=== PATIENT | male | born 1995 | race Caucasian/White ===

== ENCOUNTER 2017-03-01 01:12 | Emergency (ER) | payer SELFPAY ==
[~2017-03-01] VITALS: Ht 175.3 cm; Wt 93.2 kg
[2017-03-01 01:16] VITALS: BP 167/90
[2017-03-01 02:20] VITALS: PULSE 80; TEMP 99.5
== END 2017-03-01 02:20 | disposition home or self-care (01) ==
LOC: COL.ER 01:12
DX: S60.031A Contusion of right middle finger without damage to nail, initial encounter (principal); S60.041A Contusion of right ring finger without damage to nail, initial encounter; W23.0XXA Caught, crushed, jammed, or pinched between moving objects, initial encounter; Y92.89 Other specified places as the place of occurrence of the external cause; Y99.0 Civilian activity done for income or pay

== ENCOUNTER 2018-05-01 09:30 | Outpatient (RCR) | payer OTHER | END 2018-07-30 | disposition home or self-care (01) | LOC: WSOH | DX: S46.812A Strain of other muscles, fascia and tendons at shoulder and upper arm level, left arm, initial encounter (principal); X50.0XXA Overexertion from strenuous movement or load, initial encounter; Y92.59 Other trade areas as the place of occurrence of the external cause; Y99.0 Civilian activity done for income or pay ==